=== PATIENT | female | born 1955 | race Caucasian/White ===

== ENCOUNTER 2017-12-23 07:35 | Day surgery (SDC) | payer OTHER ==
[2017-12-23] MEDS ORDERED: PROPOFOL 60 ML (08:15)
[2017-12-23] MEDS ORDERED: LIDOCAINE 2% (SDV) 5 ML INJ (08:15)
== END 2017-12-23 10:04 | disposition home or self-care (01) ==
LOC: GIL 07:35
DX: Z12.11 Encounter for screening for malignant neoplasm of colon (principal); K57.90 Diverticulosis of intestine, part unspecified, without perforation or abscess without bleeding; E11.9 Type 2 diabetes mellitus without complications; I10 Essential (primary) hypertension
CPT/HCPCS: 45378; 82962